=== PATIENT | female | born 1980 | race Caucasian/White ===

== ENCOUNTER 2017-06-06 14:44 | Inpatient (IN) | payer BC ==
[~2017-06-06] VITALS: Ht 167.6 cm; Wt 92.8 kg
[2017-06-06] MEDS ORDERED: DOCUSATE 100 MG CAPSULE PO PRN (15:00)
[2017-06-06] MEDS ORDERED: ZOLPIDEM 5MG TABLET PO PRN (15:00)
[2017-06-06] MEDS ORDERED: ACETAMINOPHEN 325 MG TABLET PO PRN (15:00)
[2017-06-06] MEDS: LACTATED RINGERS 1,000 ML IV SCH (15:06)
[2017-06-06] MEDS ORDERED: MAGNESIUM SULF. PMX 20GM/500ML 500 ML IV SCH (15:09)
[2017-06-06] MEDS ORDERED: MAGNESIUM SULF. PMX 20GM/500ML 500 ML IV ONE ×2 (15:10→21:54)
[2017-06-06 15:22] LABS: HEMATOCRIT 37.5 % (34.6-47.8); HEMOGLOBIN 12.4 g/dL (11.7-16.4)
[2017-06-06] MEDS ORDERED: MAGNESIUM SULFATE PMX 4GM/100M 100 ML IVPB ONE (15:30)
[2017-06-06] MEDS ORDERED: MAGNESIUM SULFATE PMX 2GM/50ML 50 ML IVPB ONE (15:30)
[2017-06-06 16:46] VITALS: BP 120/70
[2017-06-06] MEDS: PLEASE ENTER HEIGHT AND WEIGHT MC SCH ×2 (17:25→23:30)
[2017-06-06] MEDS ORDERED: CLINDAMYCIN PMX 900MG/50ML 0 ML ONE (19:35)
[2017-06-06] MEDS ORDERED: CLINDAMYCIN 150 MG/ML, 6ML IVPB SCH (20:00)
[2017-06-06] MEDS: CLINDAMYCIN PMX 600MG/50ML 50 ML IV SCH (20:16)
[2017-06-06] MEDS: MAGNESIUM SULF. PMX 20GM/500ML 500 ML IV SCH (21:57)
[2017-06-07] MEDS: LACTATED RINGERS 1,000 ML IV SCH (04:15)
[2017-06-07] MEDS: CLINDAMYCIN PMX 600MG/50ML 50 ML IV SCH ×3 (04:15→19:47)
[2017-06-07] MEDS ORDERED: MAGNESIUM SULF. PMX 20GM/500ML 500 ML IV ONE ×2 (05:50→15:55)
[2017-06-07] MEDS: MAGNESIUM SULF. PMX 20GM/500ML 500 ML IV SCH ×2 (05:52→16:01)
[2017-06-07] MEDS: PLEASE ENTER HEIGHT AND WEIGHT MC SCH (07:30)
[2017-06-07] MEDS ORDERED: PRENATAL VIT/IRON/FA 1 EACH TABLET ONE (09:00)
[2017-06-07] MEDS: PRENATAL VIT/IRON/FA 1 EACH TABLET PO SCH (09:02)
[2017-06-07] MEDS: AZITHROMYCIN 250 MG TABLET PO SCH (09:02)
[2017-06-07] MEDS ORDERED: BETAMETHASONE 6 MG/ML, 5ML IM ONE ×2 (11:47→12:30)
[2017-06-07] MEDS ORDERED: MAGNESIUM SULFATE PMX 2GM/50ML 0 ML ONE (15:52)
[2017-06-07 20:40] VITALS: BP 108/64
[2017-06-08] MEDS: LACTATED RINGERS 1,000 ML IV SCH ×3 (00:13→20:20)
[2017-06-08] MEDS ORDERED: MAGNESIUM SULF. PMX 20GM/500ML 500 ML IV ONE ×2 (01:25→09:47)
[2017-06-08] MEDS: MAGNESIUM SULF. PMX 20GM/500ML 500 ML IV SCH ×2 (01:29→09:54)
[2017-06-08] MEDS: CLINDAMYCIN PMX 600MG/50ML 50 ML IV SCH ×3 (04:15→19:28)
[2017-06-08 04:16] VITALS: BP 101/60
[2017-06-08 07:50] VITALS: BP 112/68
[2017-06-08] MEDS ORDERED: PRENATAL VIT/IRON/FA 1 EACH TABLET ONE (09:49)
[2017-06-08] MEDS: AZITHROMYCIN 250 MG TABLET PO SCH (09:50)
[2017-06-08] MEDS: PRENATAL VIT/IRON/FA 1 EACH TABLET PO SCH (09:50)
[2017-06-08 20:27] VITALS: BP 115/68
[2017-06-09] MEDS: CLINDAMYCIN PMX 600MG/50ML 50 ML IV SCH ×3 (04:01→19:33)
[2017-06-09 04:18] VITALS: BP 106/61
[2017-06-09 08:30] VITALS: BP 104/65
[2017-06-09] MEDS ORDERED: PRENATAL VIT/IRON/FA 1 EACH TABLET ONE (09:09)
[2017-06-09] MEDS: AZITHROMYCIN 250 MG TABLET PO SCH (09:12)
[2017-06-09] MEDS: PRENATAL VIT/IRON/FA 1 EACH TABLET PO SCH (09:12)
[2017-06-09] MEDS: LACTATED RINGERS 1,000 ML IV SCH (09:40)
[2017-06-09 17:00] VITALS: BP 115/68
[2017-06-09] MEDS ORDERED: ZOLPIDEM 5MG TABLET PO PRN (19:00)
[2017-06-09] MEDS ORDERED: DOCUSATE 100 MG CAPSULE PO PRN (19:00)
[2017-06-09] MEDS ORDERED: ACETAMINOPHEN 325 MG TABLET PO PRN (19:00)
[2017-06-09 20:20] VITALS: BP 95/56
[2017-06-10] MEDS: CLINDAMYCIN PMX 600MG/50ML 50 ML IV SCH ×3 (04:03→20:01)
[2017-06-10 04:09] VITALS: BP 104/58
[2017-06-10] MEDS: LACTATED RINGERS 1,000 ML IV SCH ×3 (04:37→18:38)
[2017-06-10] MEDS ORDERED: PRENATAL VIT/IRON/FA 1 EACH TABLET ONE (08:57)
[2017-06-10] MEDS: AZITHROMYCIN 250 MG TABLET PO SCH (09:01)
[2017-06-10] MEDS: PRENATAL VIT/IRON/FA 1 EACH TABLET PO SCH (09:01)
[2017-06-10] MEDS ORDERED: LIDOCAINE 1%, 20ML ONE (14:14)
[2017-06-10] MEDS ORDERED: NEWBORN KIT ONE (14:14)
[2017-06-10] MEDS ORDERED: OXYTOCIN 30U/ 0.9% NaCL 500ML 500 ML ONE (14:14)
[2017-06-10] MEDS ORDERED: MISOPROSTOL 200 MCG TABLET ONE (14:14)
[2017-06-10] MEDS ORDERED: D5%-LACTATED RINGERS 1,000 ML IV SCH (16:34)
[2017-06-10] MEDS ORDERED: LACTATED RINGERS 1,000 ML IV SCH (16:34)
[2017-06-10] MEDS ORDERED: OXYTOCIN 30U/ 0.9% NaCL 500ML 500 ML IV PRN ×2 (16:34→18:21)
[2017-06-10] MEDS ORDERED: OXYTOCIN 30U/ 0.9% NaCL 500ML 500 ML IV ONE (16:34)
[2017-06-10] MEDS ORDERED: FENTANYL PF 100 MCG/2ML ONE ×2 (16:40→18:13)
[2017-06-10] MEDS: FENTANYL PF 100 MCG/2ML IVPush PRN ×2 (16:43→18:15)
[2017-06-10] MEDS ORDERED: FENTANYL PF 100 MCG/2ML IV PRN (17:00)
[2017-06-10] MEDS ORDERED: TERBUTALINE 1 MG/ML, 1ML IVPush PRN ×2 (17:00)
[2017-06-10] MEDS ORDERED: ONDANSETRON 2MG/ML, 2ML IVPush PRN (17:00)
[2017-06-10] MEDS ORDERED: TERBUTALINE 1 MG/ML, 1ML SQ PRN (17:00)
[2017-06-10] MEDS ORDERED: FENTANYL/BUPIV./NS/PF 250 ML EPIDCONT SCH (18:38)
[2017-06-10] MEDS ORDERED: BUPIVACAINE/PF 0.25% ONE (18:40)
[2017-06-10] MEDS ORDERED: FENTANYL/BUPIV./NS/PF 250 ML EPIDCONT ONE ×2 (18:40→18:41)
[2017-06-10] MEDS ORDERED: NALOXONE 0.4 MG/ML, 1ML IVPush PRN (19:00)
[2017-06-10] MEDS ORDERED: EPHEDRINE 50 MG/ML, 1ML IVPush PRN (19:00)
[2017-06-10] MEDS ORDERED: LACTATED RINGERS 1,000 ML IVBOLUS PRN (19:00)
[2017-06-10 20:18] VITALS: BP 115/56
[2017-06-10] MEDS: OXYTOCIN 30U/ 0.9% NaCL 500ML 500 ML IV SCH (21:57)
[2017-06-10] MEDS ORDERED: HYDROcodone/APAP 5/325 TABLET PO PRN (22:00)
[2017-06-10 23:40] VITALS: BP 113/73
[2017-06-11] MEDS: LACTATED RINGERS 1,000 ML IV SCH ×3 (01:40→15:00)
[2017-06-11 04:45] VITALS: BP 109/69
[2017-06-11 06:09] LABS: HEMATOCRIT 36.5 % (34.6-47.8); HEMOGLOBIN 12.3 g/dL (11.7-16.4); WHITE BLOOD COUNT 27.4 x10^3/uL (3.4-10)
[2017-06-11 06:29] LABS: DIFF TOTAL CELLS COUNTED 100 CELL DIFF
[2017-06-11 06:31] LABS: VERIFY COUNTS? YES
[2017-06-11 06:32] LABS: LARGE PLATELETS 1+; POLYCHROMASIA 1+
[2017-06-11 07:45] VITALS: BP 126/77
[2017-06-11] MEDS: OXYTOCIN 30U/ 0.9% NaCL 500ML 500 ML IV SCH ×2 (07:57→17:57)
[2017-06-11] MEDS: PRENATAL VIT/IRON/FA 1 EACH TABLET PO SCH (09:00)
[2017-06-11 15:40] VITALS: BP 105/67
[2017-06-11] MEDS: IBUPROFEN 600 MG TABLET PO PRN (15:40)
[2017-06-11] MEDS ORDERED: BUPIVACAINE 0.25% ONE (18:41)
[2017-06-11 21:40] VITALS: BP 125/80
[2017-06-12] MEDS: OXYTOCIN 30U/ 0.9% NaCL 500ML 500 ML IV SCH (03:57)
[2017-06-12] MEDS: LACTATED RINGERS 1,000 ML IV SCH (04:20)
[2017-06-12 08:50] VITALS: BP 114/66
[2017-06-12] MEDS: PRENATAL VIT/IRON/FA 1 EACH TABLET PO SCH (13:39)
[2017-06-12] MEDS: IBUPROFEN 600 MG TABLET PO PRN (13:39)
[2017-06-12 15:10] VITALS: BP 102/64
[2017-06-12 15:35] LABS: HEMATOCRIT 34.2 % (34.6-47.8); HEMOGLOBIN 11.4 g/dL (11.7-16.4); WHITE BLOOD COUNT 19.4 x10^3/uL (3.4-10)
[2017-06-12] MEDS ORDERED: DIPH,PERTUSS(ACELL),TET VAC/PF NC IM-VACC ONE ×2 (20:04→20:10)
== END 2017-06-12 21:20 | disposition home or self-care (01) | DRG 775 ==
LOC: LDIP 14:44 → 2NW 06-10 23:25
PROVIDERS: ADMIT Obstetrics & Gynecology Maternal & Fetal Medicine; ATTEND Obstetrics & Gynecology Maternal & Fetal Medicine
PROC: 10E0XZZ Delivery of Products of Conception, External Approach (ICD-10-PCS; principal; 2017-06-07)
PROC: 0HQ9XZZ Repair Perineum Skin, External Approach (ICD-10-PCS; 2017-06-07)
DX: O42.913 Preterm premature rupture of membranes, unspecified as to length of time between rupture and onset of labor, third trimester (principal); O71.82 Other specified trauma to perineum and vulva; Z3A.35 35 weeks gestation of pregnancy; Z37.0 Single live birth; Z23 Encounter for immunization
CPT/HCPCS: 36415; 76815; 82803; 83735; 85025; 86850; 86900; 88305; 90715; J0702; J3010; J3490; J2590; J3475; J7120; J7121